=== PATIENT | male | born 1970 | race Caucasian/White ===

== ENCOUNTER 2021-11-08 09:13 | Emergency (ER) | payer SELFPAY ==
[2021-11-08 09:14] VITALS: BP 128/88; PULSE 63; RESP 16; TEMP 36.4; O2SAT 100; BMI 34.7
[2021-11-08 09:20] VITALS: BP 122/84; PULSE 63; RESP 16; O2SAT 99
--- NOTE | 2021-11-08 09:31 | EKG12_ITS ---
Test Reason : CP Blood Pressure : / mmHG Vent. Rate : 060 BPM Atrial Rate : 060 BPM P-R Int : 188 ms QRS Dur : 098 ms QT Int : 404 ms P-R-T Axes : 043 -47 053 degrees QTc Int : 404 ms Normal sinus rhythm Left axis deviation Abnormal ECG Confirmed by MEILY ORNELAS, HEATH ([id number]), editor sound YAHIR SHARMA ([id number]) on 11/11/2021 8:12:49 AM Referred By: Confirmed By:HEATH DIAZ MD
--- NOTE | 2021-11-08 09:33 | EDS_ITS ---
HPI History of Present Illness Chief Complaint: Chest Pain Informant: patient Narrative Narrative: Patient presents with worsening chest pain. This patient has a history of known coronary artery disease. He started with his first heart attack at 38 years old. He has had a total of 13 stents. Most of this was done at [facility] early on. He then had work done at [facility] over the last few years. About 1 year ago he had heart cath with angioplasty but no stenting at [facility]. He was told he will likely need repeat procedure within 6 months. He is also told he would likely need bypass somewhere in the future. He commonly gets chest pain with some exertion but can control this with activity. He does not take nitro. But he has been getting more pain recently. He is also been getting some pain that occurs at rest. It is a heaviness in the left upper chest down the left upper arm. He will sometimes get short of breath with it. He sometimes gets diaphoretic. He does not get nauseated. He is not having symptoms right now. Past medical history includes high blood pressure cholesterol coronary artery disease Medications include Brilinta which he takes regularly. He also took his aspirin. He is on metoprolol. Lisinopril, and atorvastatin, co-Q10 No known drug allergies Multiple stents as above Lives with , non-smoker at this time but is a former smoker. [facility] [employer] [facility] [employer] [facility] Home Medications allopurinol 300 mg tablet 300 mg PO QHS 11/08/21 [History Last Taken Unknown] aspirin 81 mg chewable tablet 162 mg PO DAILY 11/08/21 [History Last Taken Unknown] atorvastatin 80 mg tablet 80 mg PO QHS 11/08/21 [History Last Taken Unknown] coenzyme Q10 100 mg capsule (CoQ-10) 100 mg PO BID 11/08/21 [History Last Taken Unknown] fenofibrate nanocrystallized 145 mg tablet 145 mg PO DAILY 11/08/21 [History Last Taken Unknown] lisinopril 2.5 mg tablet 2.5 mg PO DAILY 11/08/21 [History Last Taken Unknown] metoprolol tartrate 25 mg tablet 25 mg PO BID 11/08/21 [History Last Taken Unknown] omega-3 fatty acids-vitamin E 1,000 mg capsule 1.5 cap PO BID 11/08/21 [History Last Taken Unknown] thyroid (pork) 15 mg tablet (MEDICAL INSTRUMENT TECHNICIAN Thyroid) 15 mg PO DAILY 11/08/21 [History Last Taken Unknown] ticagrelor 90 mg tablet (Brilinta) 90 mg PO BID 11/08/21 [History Last Taken Unknown] Allergy/AdvReac Type Severity Reaction Status Date / Time No Known Allergies Allergy Verified 11/08/21 09:15 Social History Smoking Status: Former smoker ROS ROS ED Constitutional Constitutional ED: Denies chills or fever(s) Eyes Eyes: Denies blurry vision ENT ENT ED: Denies rhinorrhea or sore throat Cardiovascular Cardiovascular: Reports as per HPI and chest pain Respiratory/Chest Respiratory/Chest: Reports dyspnea on exertion Gastrointestinal Gastrointestinal: Denies nausea or vomiting Musculoskeletal Musculoskeletal: Denies arthralgias, back pain, myalgias or neck pain Integumentary Denies rash Neurologic Neurologic: Denies headache(s) Psychiatric Psychiatric: Denies anxiety or depression Endocrine Endocrinology: Denies polydipsia or polyuria Hematologic/Lymphatic Hematologic/Lymphatic: Reports easy bleeding and easy bruising Allergic/Immunologic Allergic/Immunologic ED: Denies urticaria EXAM Physical Exam Const Vital Signs: 11/08/21 09:14 11/08/21 09:20 11/08/21 09:59 Temperature 97.6 F L Temperature Source Temporal Pulse Rate 63 63 Respiratory Rate 16 16 Blood Pressure 128/88 H 122/84 H Blood Pressure Mean 101 96 Pulse Ox 100 99 Oxygen Delivery Method Room Air Room Air Room Air 11/08/21 10:53 11/08/21 11:52 11/08/21 13:13 Temperature Temperature Source Pulse Rate 58 L 52 L 54 L Respiratory Rate 14 14 16 Blood Pressure 122/63 H 104/70 110/79 Blood Pressure Mean 82 81 89 Pulse Ox 98 100 99 Oxygen Delivery Method Room Air Room Air Positive well nourished and well developed Constitutional Narrative: Not diaphoretic. Looks comfortable. Carries on normal conversation. General Appearance ED: well developed and NAD; Negative for pallor HEENT atraumatic Eyes EOMs intact bilaterally Neck no JVD Chest Wall inspection of chest normal Resp normal respiratory effort and clear to auscultation bilaterally Cardio regular rate, regular rhythm and no murmurs GI normal to inspection, nondistended, normoactive bowel sounds, soft to palpation and non-tender Extremity normal to inspection General Extremety ED: Negative for edema or tenderness General Extremity: Negative for edema Neuro oriented x3 Psych mental status grossly normal Skin Skin Narrative: Not diaphoretic General Skin Exam: Negative for jaundice or pallor Heart Score History: Highly Suspicious ECG: Normal Age: >45 - <65 years Risk Factors: >/= 3 Risk Factors or History of CAD Troponin: </= Normal Limit Score: 5 MDM MDM MDM Narrative Medical decision making narrative: Patient CBC is normal. Electrolytes are overall normal. Troponin and repeat troponin are within normal limits. TSH is just slightly high. Chest x-ray shows no acute process but there are chronic processes. Patient does still have a heart score of 5 due to his concerning story of progressive symptoms and his significant history of heart disease. I did discuss the case with our academic dean. He recommended admission and Lovenox. I discussed karan this with the patient. He would prefer not to stay at this time. He states he would not be getting a heart cath over the weekend. He will come back on Wednesday or he will contact cardiology for outpatient heart cath. I explained that if his symptoms changed and his EKG change while in the hospital he might get an urgent cath but otherwise he is correct that he likely would not have a scheduled cath until Wednesday. But even if he comes back on Wednesday he might not get an acute heart cath. Following up as an outpatient will likely take even longer. This is concerning considering his acute and chronic history. The best recommendation is admission. We discussed now only chest pain and having an WA but sudden cardiac from dysrhythmia. Patient prefers to go home. I did encourage him to come back to change his mind at any time. If he has any symptoms I encouraged he and his who was in the room to call 911 also. He will be signed out AMA. Lab Data Attestation: I reviewed the patient's lab results. Labs: Laboratory Results - last 24 hr 11/08/21 11/08/21 11/08/21 09:40 09:40 11:54 WBC 9.1 RBC 4.55 L Hgb 13.2 Hct 40.1 MCV 88.1 MCH 29.0 MCHC 32.9 RDW Std Deviation 48.2 H RDW Coeff of [place] 15.0 H Plt Count 261 MPV 10.9 Immature Gran % (Auto) 0.200 Neut % (Auto) 64.3 Lymph % (Auto) 24.8 Lane % (Auto) 6.7 Eos % (Auto) 3.6 Baso % (Auto) 0.4 Absolute Neuts (auto) 5.8 Absolute Lymphs (auto) 2.26 Nucleated RBC % 0 Sodium 139 Potassium 4.9 Chloride 111 H Carbon Dioxide 21.0 Anion Gap 7 BUN 20 H Creatinine 1.50 H Estim Creat Clear Calc 59.57 Est GFR (MDRD) Af Amer 64 Est GFR (MDRD) Non-Af 53 L BUN/Creatinine Ratio 13.3 Glucose 98 Calcium 9.0 Magnesium 2.1 Troponin I High Sens 5 7 TSH 3.99 H Radiography Diagnostic Testing: Clinical Impression(s) from Imaging Studies Chest X-Ray 11/08/21 09:46 IMPRESSION: Degenerative changes, as described above. No demonstrated acute cardiopulmonary process. Electronically Signed: Alvarez Medeiros MD at 10:13 EDT , EKG Initial EKG: Comments: EKG done for chest pain read by me shows a normal sinus rhythm with overall rate of 60. No ectopy. No notable ST elevation. SD interval, QRS duration and QTc is normal. No old available in our system. Discharge Plan Triage Chief Complaint: Chest Pain ED Provider: Deepak Sousa Dx/Rx/DC Orders Clinical Impression: Unstable angina Instructions: Unstable Angina Prescriptions: No Action atorvastatin 80 mg tablet 80 mg PO QHS Label Comments: take 1 tablet by mouth once daily aspirin 81 mg Tablet,Chewable 162 mg PO DAILY allopurinol 300 mg tablet 300 mg PO QHS Label Comments: take 1 tablet by mouth once daily if needed for gout lisinopril 2.5 mg tablet 2.5 mg PO DAILY Label Comments: take 1 tablet by mouth once daily coenzyme Q10 [CoQ-10] 100 mg Capsule 100 mg PO BID Fish Oil 1,000 mg Capsule 1.5 cap PO BID metoprolol tartrate 25 mg tablet 25 mg PO BID Label Comments: take 1 tablet by mouth twice a day fenofibrate nanocrystallized 145 mg tablet 145 mg PO DAILY Label Comments: take 1 tablet by mouth once daily thyroid (pork) [MEDICAL INSTRUMENT TECHNICIAN Thyroid] 15 mg tablet 15 mg PO DAILY Label Comments: take 1 tablet by mouth once daily Brilinta 90 mg Tablet 90 mg PO BID Primary Care Provider: JEREMIAS MONTOYA Referrals: Gini Mccain MD [STAFF PHYSICIAN] - As soon as possible Mahin Marvin MD [STAFF PHYSICIAN] - As soon as possible [facility] Doctor,Out of [NON-STAFF] - Disposition Disposition: Against Medical Advice
--- NOTE | 2021-11-08 09:46 | RAD_ITS ---
STUDY: X-RAY CHEST REASON FOR EXAM: Male, 51 years old. chest pain TECHNIQUE: Single AP portable view of the chest. COMPARISON: None. FINDINGS: The lungs are clear and expanded. There is no demonstrated pleural abnormality. Normal size heart. Normal mediastinum and juarez. Normal visualized pulmonary arteries. Normal visualized aortic arch and descending thoracic aorta. There are diffuse degenerative changes of the visualized thoracic spine. Normal visualized ribs, clavicles, and shoulders. There is no demonstrated abnormality of the visualized soft tissue structures of the upper abdomen. RAD/Chest 1 View (Portable) IMPRESSION: Degenerative changes, as described above. No demonstrated acute cardiopulmonary process. Electronically Signed: Alvarez Medeiros MD at 10:13 EDT ,
[2021-11-08 09:51] LABS: Absolute Lymphocyte Count 2.26 X10^3/uL (0.83-4.51); Absolute Neutrophil Count 5.8 X10^3/uL (2.0-7.7); Basophil# 0.04 X10^3/uL; Basophil% 0.4 % (0-1); Eosinophil# 0.33 X10^3/uL; Eosinophils% 3.6 % (0-5); Hematocrit 40.1 % (40-54); Hemoglobin 13.2 g/dL (13.0-16.5); Lymphocyte # 2.26 X10^3/ul (0.83-4.51); Lymphocyte % 24.8 % (19-41); Mean Corp Hgb Conc 32.9 g/dL (32-36); Mean Corpuscular Volume 88.1 fL (80-94); Mean Platelet Vol. 10.9 fl (6.2-12.0); Monocyte# 0.61 X10^3/uL; Monocyte% 6.7 % (0-10); NRBC Flagged by Analyzer 0 % (0-5); Neutrophil # 5.84 X10^3/uL (2.7-7.7); Neutrophil % 64.3 % (47-70); Platelet Count 261 K/mm3 (150-450); RBC Distribution Width SD 48.2 fl (35.1-43.9); Red Blood Count 4.55 M/mm3 (4.6-6.2); White Blood Count 9.1 K/mm3 (4.4-11.0)
[2021-11-08 10:22] LABS: Anion Gap 7 (5-15); BUN 20 mg/dL (7-18); BUN/Creat Ratio 13.3 RATIO (10-20); Chloride 111 mmol/L (98-107); EST Glomerular Filtration Rate 53 mL/min (>60); Est Glom Filt Rate - Afr Amer 64 mL/min (>60); Estimated Creatinine Clearance 59.57 ml/min; Glucose 98 mg/dL (74-106); Magnesium 2.1 mg/dL (1.6-2.6); Potassium 4.9 mmol/L (3.5-5.1); Sodium Level 139 mmol/L (136-145); Thyroid Stim Hormone (TSH) 3.99 uIU/mL (0.358-3.74); Troponin-I HS (w/2H Reflex) 5 pg/mL (3.0-78.0)
[2021-11-08 10:53] VITALS: BP 122/63; PULSE 58; RESP 14; O2SAT 98
[2021-11-08 11:45] LABS: Reflex Troponin-HS? (from REC) Y
[2021-11-08 11:52] VITALS: BP 104/70; PULSE 52; RESP 14; O2SAT 100
[2021-11-08 12:18] LABS: Troponin-I HS 7 pg/mL (3.0-78.0)
[2021-11-08 13:13] VITALS: BP 110/79; PULSE 54; RESP 16; O2SAT 99
[2021-11-08] MEDS: Enoxaparin 100 MG/ML Syringe SC (13:15)
[2021-11-08 13:38] VITALS: BP 138/77; PULSE 62; RESP 15; O2SAT 98
== END 2021-11-08 13:38 | disposition left against medical advice (07) ==
PROVIDERS: Emergency Provider Emergency Medicine; Visit Provider Emergency Medicine
DX: I25.110 Atherosclerotic heart disease of native coronary artery with unstable angina pectoris (principal); I49.9 Cardiac arrhythmia, unspecified; Z87.891 Personal history of nicotine dependence
CPT/HCPCS: 36415; 71045; 80048; 83735; 84443; 84484; 85025; 93005; 96372; 99284; A4216

== ENCOUNTER → 2021-11-14 | Outpatient (CLI) | payer SELFPAY ==
[2021-11-14 17:29] LABS: Prothrombin Time (Protime)PT. 12.9 SECONDS (11.7-14.9)
[2021-11-14 17:30] LABS: Partial Thromboplast Time 36.8 Seconds (24.1-36.2)
== END | disposition home or self-care (01) ==
PROVIDERS: Visit Provider Internal Medicine Cardiovascular Disease
DX: I25.110 Atherosclerotic heart disease of native coronary artery with unstable angina pectoris (principal); I20.0 Unstable angina; I10 Essential (primary) hypertension; E78.2 Mixed hyperlipidemia; Z95.5 Presence of coronary angioplasty implant and graft
CPT/HCPCS: 36415; 85610; 85730

== ENCOUNTER → 2021-11-19 | Outpatient (CLI) | payer SELFPAY ==
--- NOTE | 2021-11-19 14:40 | ECHOCS_ITS ---
Reason For Study: CAD/ASHD Procedure This was a 2D Doppler, Color Flow transthoracic echocardiogram. The study was technically difficult. Contrast injection was performed. Exam performed in department. Left Ventricle Normal LV size. Left ventricular systolic function is normal. The estimated ejection fraction is 65 %. No evidence for diastolic dysfunction. No regional wall motion abnormalities noted. Right Ventricle Normal RV size. Normal systolic function. Atria Normal left atrium. Normal right atrium. No doppler evidence for ASD. Mitral Valve There is no mitral annular calcification. Normal mitral valve. Trivial mitral valve insufficiency. Tricuspid Valve Normal tricuspid valve. Trivial tricuspid valve insufficiency. Unable to estimate RV systolic pressure/pulmonary artery pressure due to technically difficult study. Aortic Valve Trisinus/trileaflet aortic valve. Normal aortic valve. Pulmonic Valve The pulmonic valve is not well visualized. Great Vessels The aortic root is not well visualized. Pericardium/Pleural No pericardial effusion. Medication 20 gauge I.V. with prn adaptor inserted into right arm. Diluted definity 1ml given slow IV push to enhance endocardial definition. MMode/2D Measurements & Calculations LVIDd: 4.7 cm IVSd: 1.2 cm LA dimension: 3.9 cm LVIDs: 3.3 cm LVPWd: 1.3 cm RVDd: 3.6 cm FS: 29.4 % LAV(MOD-bp): 45.7 ml LA A4 area: 18.4 cm2 RA A4 area: 16.4 cm2 LAV(MOD-bp) Indexed: 20.7 ml/m2 LAV(MOD-sp2): 35.7 ml LAV(MOD-sp4): 44.9 ml Time Measurements MV dec time: 0.13 sec Doppler Measurements & Calculations MV E max anand: 95.5 cm/sec Lat Peak E' Anand: 15.3 cm/sec Med Peak E' Anand: 11.4 cm/sec MV A max anand: 66.8 cm/sec E/E' lat: 6.2 E/E' med: 8.4 MV E/A: 1.4 MV V2 max: 108.5 cm/sec MV P1/2t max anand: 108.5 cm/sec Ao V2 max: 134.2 cm/sec MV max P.7 mmHg MV P1/2t: 59.3 msec Ao max P.2 mmHg MV V2 mean: 53.3 cm/sec MV dec slope: 535.9 cm/sec2 MV mean P.4 mmHg MV V2 VTI: 25.7 cm MVA(P1/2t): 3.7 cm2 LV V1 max: 104.5 cm/sec PA V2 max: 103.0 cm/sec LV V1 max P.4 mmHg ECHO/Echo Complete W/ Contrast Interpretation Summary The study was technically difficult. Contrast injection was performed. Left ventricular systolic function is normal. The estimated ejection fraction is 65 %. Trivial mitral valve insufficiency. Trivial tricuspid valve insufficiency. Unable to estimate RV systolic pressure/pulmonary artery pressure due to techni libby difficult study. No evidence for diastolic dysfunction. Ordering Physician: Lul Dominguez Referring Physician: Lul Dominguez Performed By: Floyd James, CASE
== END | disposition home or self-care (01) ==
PROVIDERS: Referring Provider Internal Medicine Cardiovascular Disease; Visit Provider Internal Medicine Cardiovascular Disease
DX: I25.10 Atherosclerotic heart disease of native coronary artery without angina pectoris (principal); Z95.5 Presence of coronary angioplasty implant and graft
CPT/HCPCS: 93306; Q9957; A4216; C8929

== ENCOUNTER 2021-11-20 09:54 | Observation (INO) | payer SELFPAY ==
[2021-11-19 09:33] VITALS: BMI 34.8
--- NOTE | 2021-11-19 19:39 | HP.PCM_ITS ---
History and Physical Date of Admission: 11/20/21 [facility] [address] [place] [address] OFFICE VISIT Date of Service:? 11/14/21 MR#: [id number] Acct: [id number] Name:LUCI TATUM Rep #: [id number] : 1970 Provider: Dr. Lul Dominguez MD Age/Sex:? 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 It appears the patient has been cared for from a cardiovascular standpoint in many locations with the 2 most recent locations appearing to be through the [facility] in [place], [place] as well as via cardiology at [facility] in [place], [place]. It appears his most recent outpatient cardiovascular visit was on 11-22-2020 in [place], [place].? At that point in time per his visit note he was continuing medical management and attempting to bring his diet and his exercise under better control in order to improve his cardiovascular risks. It appears he underwent cardiac catheterization on 11-20-2019 in [place], [place].? At that point in time per the report the patient underwent cardiac catheterization via the right femoral artery approach.? The left main coronary was reported as normal.? The LAD was reported as having an in-stent restenosis less than 20%, the LCx had mid in-stent restenosis less than 20%, the RCA had mid in-stent restenosis of 95%.? The left ventricle was reported as normal with an LVEF of 65%.? The patient subsequently underwent PTCA/stent of the RCA system with a Medtronic resolute Lynn 3.5x22 OTW stent. It appears that his most recent diagnostic cardiac catheterization was performed on 08-30-2020 in [place], [place].? At that point in time per their report he was evaluated for unstable angina.? According to their report the left main coronary artery had minimal luminal regularities, the LAD had mid 40% stenosis, the LCx had a mid stent which was widely patent, the RCA was noted to have at least 2 layers of stents in the mid vessel.? The proximal RCA had 50% stenosis and had previously been stented, the mid RCA had 80% stenosis and had been stented, the distal RCA had 70% stenosis and had been stented.? At that time the patient underwent PTCA/no stent of the proximal mid and distal RCA systems.? The left ventricle was reported as normal with an LVEF of 55 to 60%. He states he has been told that at some point in time he would need to be evaluated for CT surgery was CABG.? He states he has never been officially evaluated by CT surgery for such a procedure. He states he knows his symptoms.? He knows when he feels that he has developed a new blockage .? He developed chest dullness and pressure over his left chest area which is what he states he has been having that has been waxing and waning.? He states that this can occur without having acute nausea emesis or diaphoresis.? He may or may not note shortness of breath and dyspnea.? He does begin to feel more tired and fatigued. He notes because of these symptoms he was evaluated at [facility] in [place], [place].? He states after several hours in the emergency department he was released home.? He was subsequently evaluated on 11-08-2021 at [facility] emergency department.? There he had a troponin I level which was negative.? His ECG demonstrated findings of sinus rhythm with a left axis deviation.? His chest x-ray was reported as unremarkable.? He was offered admission to the hospital, however, he stated he did not want to remain in the hospital over the course of the weekend waiting for a possible cardiac catheterization to occur at the beginning of the following week.? Thus he signed out AMA and requested outpatient cardiovascular consultation. Today he denies any ongoing orthopnea or PND or worsening peripheral pitting edema.? There has been no near-syncope or syncope. He states he has not been using nitroglycerin sublingual.? He does note when he uses it he gets headaches. He had an ECG in the office today.? He was noted to have sinus rhythm with a left axis deviation and an incomplete right bundle branch block pattern. Intake Vital Signs ? 11/08/2208:14 11/14/2214:37 11/14/2214:39 Height 5 ft 9 in 5 ft 9 in 5 ft 9 in Weight: ? ? 236 lb 9 oz BMI ? ? 34.9 BP ? ? 110/68 Blood Pressure Location ? ? Lt brachial Position ? ? Sitting Respiration ? ? 16 Pulse ? ? 68 Pulse Source ? ? Auscultation Intake Visit Reasons:?ANGINA/REF. ED Packager Head Required: No Accompanied by: Significant Other Allergies No Known Allergies Allergy (Verified 11/14/21 15:40) Medications allopurinol 300 mg tablet 300 mg PO QHS 11/08/21 [History Confirmed 11/14/21] aspirin 81 mg chewable tablet 162 mg PO DAILY 11/08/21 [History Confirmed 11/14/21] atorvastatin 80 mg tablet 80 mg PO QHS 11/08/21 [History Confirmed 11/14/21] coenzyme Q10 100 mg capsule (CoQ-10) 100 mg PO BID 11/08/21 [History Confirmed 11/14/21] fenofibrate nanocrystallized 145 mg tablet 145 mg PO DAILY 11/08/21 [History Confirmed 11/14/21] lisinopril 2.5 mg tablet 2.5 mg PO DAILY 11/08/21 [History Confirmed 11/14/21] metoprolol tartrate 25 mg tablet 25 mg PO BID 11/08/21 [History Confirmed 11/14/21] omega-3 fatty acids-vitamin E 1,000 mg capsule 1.5 cap PO BID 11/08/21 [History Confirmed 11/14/21] thyroid (pork) 15 mg tablet (DUST MOP MAKER Thyroid) 15 mg PO DAILY 11/08/21 [History Confirmed 11/14/21] ticagrelor 90 mg tablet (Brilinta) 90 mg PO BID 11/08/21 [History Confirmed 11/14/21] cholecalciferol (vitamin D3) 50 mcg (2,000 unit) tablet 50 mcg PO DAILY 11/11/21 [History Confirmed 11/14/21] nitroglycerin 0.4 mg sublingual tablet 0.4 mg sublingual Q5-15M PRN 11/11/21 [History Confirmed 11/14/21] ranolazine 500 mg tablet,extended release,12 hr (Ranexa) 500 mg PO BID #60 tabs 11/14/21 [Rx Confirmed 11/14/21] PFSH Medical History? Atherosclerotic heart disease of [place] coronary artery with unstable angina pectoris CKD (chronic kidney disease) Depression Essential hypertension History of ST elevation myocardial infarction (STEMI) Hypothyroidism Mixed hyperlipidemia IKER (obstructive sleep apnea) Presence of stent in coronary artery (~11/20/19) Surgical History? Presence of coronary angioplasty implant and graft (~11/20/19) Family History? Father Heart disease CAD (coronary artery disease)Mother Myocardial infarction CAD (coronary artery disease) Social History? Smoking Status:? Former smoker alcohol intake:? never substance use type:? does not use caffeine:? Yes Type: coffee Number of servings: 1 ROS Const Const: Negative for fatigue, weakness, body ache, fever(s), headache(s), chills, frequent falls, night sweats, daytime sleepiness, difficulty sleeping, excessive sweating, weight gain, weight loss, increased appetite, poor appetite, anorexia or other Eyes Eyes: Negative for blurry vision or double vision ENT ENT: Negative for headache(s), dizziness or balance problems Cardio Chest Pain: Yes Character: other (headache feeling in heart with radiates to Lt UE) Onset: at rest and exercise Location: left chest Duration: minutes (intermittent) Relieving: rest Palpitations: Yes (previously...not lately the past couple of months) feels like its: other (fluttering) Edema: None Muscle aches with walking: Bilateral (calf muscles ambulating long distance) Resp Respiratory: Positive for SOB with activity (occasional); Negative for SOB at rest, SOB orthopnea\SOB lying down, Cough, Coughing up blood/hemoptysis, chest congestion, pain on inspiration, snoring, stridor, wheezing, crackles, paroxysmal nocturnal dyspnea or other Musc Musc: Negative for muscle aches/ myalgia, muscle weakness, joint pain or balance problems Neuro Neuro: Positive for lightheadedness (occasional in the am); Negative for dizziness, near syncope, syncope, orthostatic symptoms, frequent falls, headache(s), weakness, confusion, memory loss, restless legs, blurry vision, double vision, vertigo, seizures, lack of coordination or other Endo Endo: Negative for fatigue or excessive sweating Cardiology Exam Const Appearance: cooperative, healthy appearing, comfortable, no acute distress, well developed and well groomed Nutritional Appearance: overweight Orientation: alert, awake and oriented x3 Head Head: normal to inspection, normocephalic and atraumatic Ears: hearing grossly normal bilaterally Nose: external nose normal Face and Sinus: face symmetric Eyes Eyelids: eyelids normal Conjunctivae: conjunctivae normal Pupils: PERRL EOM: EOM intact bilaterally Neck Neck: normal visual inspection and full ROM Carotids: normal carotid upstroke Chest Chest inspection: normal inspection of the chest, symmetric chest movement and normal respiratory effort Auscultation: Bilateral: Clear to Auscultation Cardio Palpation: normal PMI Rate: regular rate Rhythm: regular rhythm Heart sounds: S1 normal and S2 normal Supplemental Info Supplemental Information Labs: ?? ? No Data to Display Diagnostics: ?? ? Electrocardiogram ? Chest X-Ray ? Pulmonary: ?? ? No Data to Display Assessment and Plan Assessment and Plan (1) Atherosclerotic heart disease of [place] coronary artery with unstable angina pectoris: ?Status:?Acute ?Plan: He does have a history of extensive CAD as noted. At the moment there is concern of his symptoms being related to his CAD process. He will continue medical therapy. He has not been on nitrates potentially because of the concern of headaches and to eliminate medications that would interfere with his ability to use medications needed for erectile dysfunction. He will be attempted on Ranexa at 500 mg twice daily. He states in the past that he has undergone exercise tolerance test/imaging studies.? He states 1 was reported as normal and within a week he was in the hospital with an acute coronary syndrome undergoing cardiac catheterization and PCI.? He states 9 out of 10 will lead to the cardiac catheterization laboratory.? He prefers to proceed directly to the cardiac catheterization laboratory for additional evaluation. At the moment he will be asked to have a transthoracic echocardiogram performed to evaluate his left ventricular wall motion and systolic function. A cardiac catheterization procedure and risk were discussed with him.? He was agreeable to this approach.? This will be established for him. He is aware that he may not be a candidate for additional PCI and may need to be considered for CT surgery consultation for possible CABG. (2) Presence of stent in coronary artery: ?Status:?Acute ?Comment: PCI/MARLO to mid RCA per cardiac cath @ [facility]. [facility] Dr. Matt Chavez 11/20/2019; PCI/MARLO to the mid and distal RCA per cardiac cath @ @ [facility]. [facility] Dr. Matt Chavez 07/07/19; 2 vessel CAD, no intervention per cath 04/01/17; PCI/MARLO of the distal RCA per cath 06/09/16; PCI/Stenting to high grade lesions involving the LCX and RCA per cath 10/03/15; PCI/stent to mid RCA per cath 07/05/15 ?Plan: He has undergone extensive PCI work in the past at various institutions. An attempt will be made to obtain their images for continuity of care. However the meantime he will continue medical therapy and his noninvasive and invasive evaluation. (3) Mixed hyperlipidemia: ?Status:?Acute ?Plan: He will continue lipid-lowering therapy. (4) Essential hypertension: ?Status:?Acute ?Plan: He will continue medical therapy for his hypertension. (5) Unstable angina: ?Status:?Acute ?Plan: He claims his symptoms are compatible with his unstable angina symptoms. Thus at the present time he will proceed with his medical therapy, noninvasive evaluation, and invasive evaluation as noted. ? ? ? Orders: Orders 12 Lead EKG performed by [facility] Today I25.1 10 - Atherosclerotic heart disease of [place] coronary artery with unstable angina pectoris, Z95.5 - Presence of coronary angioplasty implant and graft ? Left Heart Cath/COR/LV Percut Today E78.2 - Mixed hyperlipidemia, I10 - Essential (primary) hypertension, I20.0 - Unstable angina, I25.110 - Atherosclerotic heart disease of [place] coronary artery with unstable angina pectoris, Z95.5 - Presence of coronary angioplasty implant and graft ? Partial Thromboplast Time Today E78.2 - Mixed hyperlipidemia, I10 - Essential (primary) hypertension, I20.0 - Unstable angina, I25.110 - Atherosclerotic heart disease of [place] coronary artery with unstable angina pectoris, Z95.5 - Presence of coronary angioplasty implant and graft ? Prothrombin Time w/INR Today E78.2 - Mixed hyperlipidemia, I10 - Essential (primary) hypertension, I20.0 - Unstable angina, I25.110 - Atherosclerotic heart disease of [place] coronary artery with unstable angina pectoris, Z95.5 - Presence of coronary angioplasty implant and graft ? Echo Complete Today E78.2 - Mixed hyperlipidemia, I10 - Essential (primary) hypertension, I20.0 - Unstable angina, I25.110 - Atherosclerotic heart disease of [place] coronary artery with unstable angina pectoris, Z95.5 - Presence of coronary angioplasty implant and graft ? Medications: New ranolazine ER (Ranexa) 500 mg? PO BID 60 tabs 3RF ? ? Plan Details Additional Comments: Thank you for allowing me to participate in the care of your patient.? Please don't hesitate to call if any issues arise. This note was generated using a voice recognition system and there may be incorrect words, spelling or punctuation that were not noted when reviewing the office note prior to saving. Follow Up: ? ? 6 Weeks (PFM ) ? ? 11/14/21 (copy of cardiac cath films from [facility]) COVID (Procedure Consent) Procedure Criteria Procedure Criteria: Yes Elective The surgeon/proceduralist and patient have discussed in detail the risk of exposure to and/or potential harm posed by the COVID-19 virus with having a surgery/procedure at this time versus the risk of? delaying the surgery/procedure. It is not possible to know either the risk of delaying the surgery or procedure or chance of getting an infection with perfect accuracy, but a joint decision was made between the patient and the surgeon/proceduralist ?to proceed at this time with the scheduled surgery/procedure as indicated on the consent form. Coding Level of Care Code Off vis,new,level 5 Diagnoses Atherosclerotic heart disease of [place] coronary artery with unstable angina pectoris? I25.110 Presence of stent in coronary artery? Z95.5 Mixed hyperlipidemia? E78.2 Essential hypertension? I10 Unstable angina? I20.0 Coding Level of Care Code Off vis,new,level 5 Diagnoses Atherosclerotic heart disease of [place] coronary artery with unstable angina pectoris? I25.110 Presence of stent in coronary artery? Z95.5 Mixed hyperlipidemia? E78.2 Essential hypertension? I10 Unstable angina? I20.0 11/14/21 0856 <Electronically signed by Lul Dominguez MD> Date [facility] Signature: Date (if applicable) CC:? No Primary? Care Physician ~ Assessment & Plan Addt'l Comments Addendum: The patient underwent further evaluation with transthoracic echocardiogram on 11-19-2021. The results are noted below. Interpretation Summary The study was technically difficult. Contrast injection was performed. ? Left ventricular systolic function is normal. The estimated ejection fraction is 65 %. Trivial mitral valve insufficiency. Trivial tricuspid valve insufficiency. Unable to estimate RV systolic pressure/pulmonary artery pressure due to technically difficult study. No evidence for diastolic dysfunction. I have re-examined the patient. There are no clinical changes since date of exam
--- NOTE | 2021-11-20 10:24 | CL.D_ITS ---
Patient Name: LUCI SERRATO Study Date: 11/20/2021 Performing: Lul Dominguez MD Ht: 68.89 inches 175 cm : 1970 Wt: 235.89 lbs 107 kg Age: 51 Gender: male BSA: 2.21 PROCEDURE(S) PERFORMED DC02-(91550)LHC/COR IC12-(20057/C9600)MARLO W/WO PTCA, SINGLE CORONARY ARTERY CLINICAL PROFILE AND INDICATIONS Indications: Worsening Angina, Suspected CAD Heart Failure: None Stress/Imaging Stress/Image Study Performed: No Angina Classification Anginal Classification w/in 2 Weeks: CCS III CAD Presentations: Unstable angina. CONCLUSIONS Elevated Left Ventricular End Diastolic Pressure [place] Multivessel CAD LCX: stent: patent RCA: distal stent: instent restenosis RECOMMENDATIONS Risk factor modification Medical therapy Referred for immediate PCI DESCRIPTION OF PROCEDURE The patient arrived to the procedure lab. The risks and benefits of the procedure as well as a full d escription of our services here and current unavailability of surgical backup were fully explained to the patient and/or their significant other prior to the catheterization. The Timeout was completed, verifying the correct patient and procedure. The patient's procedural site was prepped and draped in the usual fashion. Local anesthetic was given subcutaneously to right radial region with Lidocaine 2% . Using a modified Seldinger technique, arterial access was obtained via the right radial artery, a 6 Fr sheath was inserted. LV to AO pullback pressures were then recorded. Left Coronary Artery selecti ve angiography was performed in multiple views using a 5 Fr. 4.0 [place] catheter. Right Coronary Arter y selective angiography was then performed in multiple views using a 5 Fr. 4.0 [place] catheter.The art erial sheath was pulled and a TR Band was applied for hemostasis CORONARY ANGIOGRAPHY DOMINANCE: Right Dominant LEFT HEART ASSESSMENT Elevated Left Ventricular End Diastolic Pressure LVEDP: 17 mmHg LEFT MAIN: Angiographically normal LEFT ANTERIOR DESCENDING ARTERY: Mild luminal irregularities DIAGONAL 1: Proximal - Mild luminal irregularities CIRCUMFLEX ARTERY: Mild luminal irregularities MID CIRC: Previously placed stent is patent RAMUS: Mild luminal irregularities RIGHT CORONARY ARTERY: PROX RCA: Previously placed stent is patent MID RCA: Previously placed stent is patent DISTAL RCA: Previously placed stent has an instent diffuse: 85 % and 75 % restenosis COMPLICATIONS No Complications PROCEDURE MEDICATIONS Fentanyl 50 mcg IV Versed 1 mg IV Versed 1 mg IV Fentanyl 50 mcg IV Fentanyl 50 mcg IV Versed 1 mg IV Oxygen: 2 L/min via nasal cannula Heparin 7000 unit(s) IV 11/20/2021 09:02:50 Zofran 4 mg IV 11/20/2021 07:41:35 SUMMARY OF HEMODYNAMIC DATA Time AIR REST ECG 07:15:23 ECG 07:41:05 LV 137/-1, 26 08:23:07 LV 134/2, 17 08:23:20 LVp 145/1, 26 08:23:26 AOp 121/63 (97) 08:23:33 AO 133/82 (103) SA 08:23:50 AO 117/83 (100) 08:27:19 AO 128/63 (87) 08:30:17 Signed By Lul Dominguez MD On 11/20/2021 10:23:27 Lul Dominguez MD
--- NOTE | 2021-11-20 11:09 | PCI.CARDCATH ---
PCI Cardiac Cath Report PCI Report: 1. Successful PCI of 85% mid RCA in-stent restenosis, with predilatation using NC 2.5 x 15 mm balloon, emerge MR balloon Followed by placement of a drug-eluting stent 3 x 30 mm MARLO/[place], postdilated using 3.5 x 15 mm/emerge MR NC balloon with reduction of stenosis to 0% and maintenance of RULA-3 flow. 2. Placement of TR band to close the right radial artery arteriotomy site. Preprocedure diagnosis: 51-year-old patient with history of CAD has a multiple prior cardiac catheterization with PCI and stent of left circumflex and RCA. Presented with angina symptoms classical angina within the last 2 weeks with a medical therapy dual antiplatelet therapy aspirin and Brilinta I reviewed the cardiac catheterization today with Dr. Dominguez Patient has left main normal angiographically, bifurcating into LAD and left circumflex The left anterior descending artery had mild luminal irregularities as well as mild luminal irregularities in the proximal diagonal branch The mid left circumflex artery previously placed stent is patent. Ramus intermedius has mild luminal irregularity Right coronary artery had a stent involving the proximal RCA and mid RCA and the distal RCA Noted mid to distal RCA stent had diffuse in-stent restenosis of around 85%. As the patient had classical angina discuss PCI and stent of mid to distal RCA in-stent restenosis. Consent; Risk and benefit of procedure explained detail to the patient elected to proceed informed consent obtained. Anticoagulation use in the Paper Cap Machine Operator; Patient has already been on dual antiplatelet with aspirin and Brilinta Patient was given 3000 units of heparin through the sheath/right radial sheath and a total of 73,000 units of IV heparin intravenous. Interventional equipment used; 1. 6 [place] JR4 guide catheter 2. 0.014 run-through extra floppy 180 cm straight wire 3. 0.035-260 cm J exchange wire. 4. 2.5 x 15 mm NC MR Emerge balloon 5. 3 x 30 mm drug-eluting stent/Orsiro?[place] 6. 3.5 x 15 mm NC Emerge MR balloon Procedure in detail; Under fluoroscopic guidance we will proceed with a 6 [place] JR4 guide advanced ascending aorta cannulated the RCA ostium without difficulty, followed by the guidewire proceeds across the lesion and placed the guidewire into the midportion of the RPDA Then will proceed with the balloon dilatation using the 2.5 x 15 mm NC balloon, followed by placement of a drug-eluting stent followed by postdilatation up to 20 TJ We achieve excellent result, ACT level acceptable above 300 Conclusion and recommendations; Successful PCI of diffuse in-stent restenosis of the mid to distal RCA with predilatation and placement of drug-eluting stent followed by postdilatation 1. Patient to continue on dual antiplatelet therapy with Brilinta aspirin for 1 year, followed by aspirin indefinitely 2. Patient is scheduled for phase 1 cardiac rehab program 3. Patient to follow-up with the primary gettering filament machine operator Dr. Dominguez for continuation of cardiac care plan. No complication in the Paper Cap Machine Operator Mahin Marvin MD,FACC,[facility]
--- NOTE | 2021-11-20 11:15 | EKG12_ITS ---
Test Reason : am ekg Blood Pressure : / mmHG Vent. Rate : 061 BPM Atrial Rate : 061 BPM P-R Int : 182 ms QRS Dur : 102 ms QT Int : 436 ms P-R-T Axes : 049 -53 075 degrees QTc Int : 438 ms Normal sinus rhythm Left axis deviation Abnormal ECG Confirmed by EMILY ORNELAS, HEATH ([id number]), electronic news gathering editor YAHIR SHARMA ([id number]) on 11/24/2021 10:35:30 AM Referred By: Confirmed By:HEATH DIAZ MD
--- NOTE | 2021-11-20 11:31 | CRPHASE1 ---
Patient Communication PHII Cardiac Rehab Discussed with Patient:: Yes Guide to Cardiac Rehab Given to Patient:: Yes Cardiac Rehab Facility Choice List Given to Patient:: Yes Choice Program [facility] CR PHII:: Communication Given to CR Choice Program Other:: Communication Given to CR Legal Job Titles:: [facility] Phase II Cardiac Rehab:: Yes Sessions:: 36 sessions - 3 days/wk, 12 weeks - previous stenting- done at another facility Cardiac Rehabilitation Info Cardiac Rehabilitation Program Information: Cardiac Rehabilitation is important for patients like you who are recovering from a heart problem. Cardiac rehabilitation programs are recognized as integral to the continued care of the patient with coronary heart disease. The cardiac rehabilitation program is designed to optimize a patient's physical, psychological, and social functioning. Health student career development specialist work in cardiac rehabilitation programs and assist you with getting the treatments you need to get stronger and healthier - like exercise, healthy eating habits, and medications. Cardiac rehabilitation has been show to help people with heart problems live longer and have better life enjoyment than people who do not go to cardiac rehabilitation. Please contact the Cardiac Rehabilitation Program at [facility] at in two weeks if you have not heard from them.
--- NOTE | 2021-11-20 11:32 | CRPH1.INSTRU ---
General Education CAD and cardiac anatomy and function:: Patient communicates acknowledgment Explanation of diagnoses and procedures:: Patient communicates acknowledgment Sign/Symptoms of [place]:: Patient communicates acknowledgment Antiplatelet therapy: Patient communicates acknowledgment Smoking Patient Nicotine/Smoking Risk Factors Are:: Non-smoker Recommendations Include:: Previous smoker; encourage continued cessation Nicotine/Smoking Response Code:: Patient communicates acknowledgment Dyslipidemia Patient Dyslipidemia Risk Factors Are:: Total Cholesterol, Triglycerides, HDL, LDL Recommendations Include:: Lipid profile not available, Reviewed NCEP/ATP guidelines, Therapeutic Lifestyle Change dietary guidelines Dyslipidemia Response Code:: Patient communicates acknowledgment Overweight/Obesity Patient Overweight/Obesity Risk Factors Are:: Obesity - > or = 30 Recommendations Include:: Weight loss of 5-10%, Reduced calorie diet, Exercise 5-7 times/week Overweight/Obesity:: Patient communicates acknowledgment Hypertension Recommendations Include:: Maintain BP <130/85, DASH dietary guidelines, Decrease/maintain normal body weight Hypertension:: Patient communicates acknowledgment Diabetes Patient Diabetes Risk Factors Are:: No documented hx of diabetes Metabolic Syndrome Patient Metabolic Syndrome Risk Factors Are [3 of 5]:: Waist circumference > 35 [female] or 40 [male], High triglyceride >150, Hypertension, Low HDL <40 [male] or < 50 [female] Recommendations Include:: Reinforce compliance to risk factor modifications, Encouraged follow-up with Primary Care Physician Metabolic Syndrome Response Code:: Patient communicates acknowledgment Sedentary Patient Sedentary Risk Factors Are:: Lack of regular exercise Recommendations Include:: Aerobic exercise 5-7 times/week for 20-30 minutes continuously, Benefits of regular exercise, Discussed home walking program, Monitored Outpatient Cardiac Rehab Sedentary Response Code:: Patient communicates acknowledgment Stress Recommendations Include:: Identification of stressors, and assessment of coping skills, Stress management techniques Stress Response Code:: Patient communicates acknowledgment
[2021-11-20 15:35] VITALS: BP 108/64; PULSE 59; PULSE 60; RESP 16; TEMP 36.4; O2SAT 98
[2021-11-20] MEDS: 0.9% Normal Saline 1,000 ML 75 ML IV (16:00)
[2021-11-20 17:20] VITALS: O2SAT 96
[2021-11-20 19:27] VITALS: PULSE 59
[2021-11-20 21:38] VITALS: BP 111/71; PULSE 59; RESP 18; TEMP 36.6; O2SAT 98
[2021-11-20 21:49] VITALS: BP 111/71; PULSE 59
[2021-11-20] MEDS: Allopurinol 300 MG Tablet PO (21:49)
[2021-11-20] MEDS: Ranolazine 500 MG Tablet PO (21:49)
[2021-11-20] MEDS: TICAGRELOR 90 MG TABLET PO (21:49)
[2021-11-20] MEDS: Atorvastatin Calcium 80 MG Tablet PO (21:49)
[2021-11-21 03:17] VITALS: PULSE 61
[2021-11-21 03:26] VITALS: BP 111/62; PULSE 63; RESP 16; TEMP 36.5; O2SAT 97
[2021-11-21 05:47] LABS: Absolute Lymphocyte Count 2.06 X10^3/uL (0.83-4.51); Absolute Neutrophil Count 4.7 X10^3/uL (2.0-7.7); Basophil# 0.04 X10^3/uL; Basophil% 0.5 % (0-1); Eosinophil# 0.32 X10^3/uL; Eosinophils% 4.1 % (0-5); Hemoglobin 12.8 g/dL (13.0-16.5); Lymphocyte # 2.06 X10^3/ul (0.83-4.51); Lymphocyte % 26.4 % (19-41); Mean Corp Hgb Conc 32.8 g/dL (32-36); Mean Corpuscular Hgb 28.8 pg (27.0-32.0); Mean Corpuscular Volume 87.8 fL (80-94); Mean Platelet Vol. 10.7 fl (6.2-12.0); Monocyte% 7.7 % (0-10); NRBC Flagged by Analyzer 0 % (0-5); Neutrophil # 4.74 X10^3/uL (2.7-7.7); Neutrophil % 60.9 % (47-70); Platelet Count 241 K/mm3 (150-450); RBC Distribution Width CV 14.9 % (11.6-14.6); RBC Distribution Width SD 48.2 fl (35.1-43.9); Red Blood Count 4.44 M/mm3 (4.6-6.2); White Blood Count 7.8 K/mm3 (4.4-11.0)
--- NOTE | 2021-11-21 05:55 | EKG12_ITS ---
Test Reason : POST PCI Blood Pressure : / mmHG Vent. Rate : 058 BPM Atrial Rate : 058 BPM P-R Int : 194 ms QRS Dur : 100 ms QT Int : 428 ms P-R-T Axes : 039 -37 034 degrees QTc Int : 420 ms Sinus bradycardia Left axis deviation Incomplete right bundle branch block Abnormal ECG Confirmed by EMILY ORNELAS, HEATH ([id number]), deputy editor in chief YAHIR SHARMA ([id number]) on 11/24/2021 10:41:15 AM Referred By: DR REED Confirmed By:HEATH DIAZ MD
[2021-11-21 06:41] LABS: AST(SGOT) 18 U/L (15-37); Alanine Aminotransfer ALT/SGPT 21 U/L (16-61); Albumin, Serum 3.4 g/dL (3.2-5.0); Alkaline Phosphatase 37 U/L (45-117); Anion Gap 6 (5-15); BUN 18 mg/dL (7-18); BUN/Creat Ratio 13.2 RATIO (10-20); Calcium,Total 8.7 mg/dL (8.5-10.1); Chloride 108 mmol/L (98-107); Creatinine, Serum 1.36 mg/dL (0.70-1.30); EST Glomerular Filtration Rate 59 mL/min (>60); Est Glom Filt Rate - Afr Amer 72 mL/min (>60); Globulin 3.5 g/dL (2.2-4.2); Glucose 101 mg/dL (74-106); Potassium 4.1 mmol/L (3.5-5.1); Protein, Total 6.9 g/dL (6.4-8.2); Sodium Level 136 mmol/L (136-145)
[2021-11-21 06:58] VITALS: O2SAT 95
[2021-11-21 07:53] VITALS: PULSE 67
[2021-11-21] MEDS: Thyroid 15 MG Tablet PO (08:11)
[2021-11-21 08:31] VITALS: BP 117/82; PULSE 57; RESP 16; TEMP 36.6; O2SAT 100
[2021-11-21] MEDS: Fenofibrate 145 MG Tablet PO (08:36)
[2021-11-21] MEDS: Cholecalciferol (VIT D3) 25 MCG TABLET (1,000 UNITS) 50 MCG PO (08:36)
[2021-11-21] MEDS: TICAGRELOR 90 MG TABLET PO (08:36)
[2021-11-21] MEDS: Ranolazine 500 MG Tablet PO (08:36)
[2021-11-21 09:33] VITALS: BP 117/82; PULSE 57
[2021-11-21] MEDS: Metoprolol Tartrate 25 MG Tablet PO (09:33)
[2021-11-21] MEDS: Lisinopril 2.5 MG Tablet PO (09:33)
--- NOTE | 2021-11-21 09:52 | PCM.DC ---
Discharge Instructions Diet Discharge Diet: Low fat / Low cholesterol Activity Discharge Activity: May Not Drive (x 24 hours), May Shower (Today) and May Take a Tub Bath (in 7 days) May resume sexual activity in: 1-2 weeks Weight Bearing Status: - (avoid heavy exertional activity x 2 weeks) Dressing / Incision Call your doctor if your incision/area has: Continuous Slow Oozing, Sudden Increased Bleeding, Increased Pain/ Swelling, Increased Redness, Foul Smelling Discharge and Swelling at the incision site Call your doctor if you observe: Fever of 101 or Higher, Shortness of breath, Fainting spells, Swelling in the ankles, Chest pain, Increased palpitations (irregular heartbeat) and Uncontrolled pain Remove Dressing in: 1 day Cleanse incision/area with: Soap & Water Follow Up Care Please Follow Up With: Lul Dominguez MD When: [facility] to arrange follow up appt. Test Results: Test results from this visit will be discussed in further detail at your follow-up appointment, if applicable. Discharge Plan Admission Admit Date/Time: 11/20/21 09:54 Attending Provider: Lul Dominguez Primary Care Provider: Care Physician,No Primary Discharge Orders/Prescriptions Prescriptions: Continued ranolazine [Ranexa] 500 mg tablet extended release 12 hr 500 mg PO BID Qty: 60 3RF cholecalciferol (vitamin D3) 50 mcg (2,000 unit) tablet 50 mcg PO DAILY nitroglycerin 0.4 mg tablet, sublingual 0.4 mg sublingual Q5-15M PRN (Reason: Chest Pain) Rx Instructions: do not exceed 3 doses per episode atorvastatin 80 mg tablet 80 mg PO QHS Label Comments: take 1 tablet by mouth once daily aspirin 81 mg Tablet,Chewable 162 mg PO DAILY allopurinol 300 mg tablet 300 mg PO QHS Label Comments: take 1 tablet by mouth once daily if needed for gout lisinopril 2.5 mg tablet 2.5 mg PO DAILY Label Comments: take 1 tablet by mouth once daily coenzyme Q10 [CoQ-10] 100 mg Capsule 100 mg PO BID omega-3 fatty acids-vitamin E 1,000 mg Capsule 1.5 cap PO BID metoprolol tartrate 25 mg tablet 25 mg PO BID Label Comments: take 1 tablet by mouth twice a day fenofibrate nanocrystallized 145 mg tablet 145 mg PO DAILY Label Comments: take 1 tablet by mouth once daily thyroid (pork) [CONSTRUCTION EXECUTIVE Thyroid] 15 mg tablet 15 mg PO DAILY Label Comments: take 1 tablet by mouth once daily Brilinta 90 mg Tablet 90 mg PO BID Referrals / Follow Up: Care Physician,No Primary [Primary Care Provider] - Lul Dominguez MD [STAFF PHYSICIAN] -
--- NOTE | 2021-11-21 09:56 | PCM.DC.SUM ---
Providers Date of Admission: 11/20/21 Date of Discharge: 11/21/21 Primary Care Physician: Bisi Primary Care Phys Reason For Visit: UNSTABLE ANGINA, CAD, PRESENCE OF STENT, HTN, HLD Diagnosis Discharge Diagnosis (1) Atherosclerotic heart disease of [place] coronary artery with unstable angina pectoris: Status: Acute Code(s): I25.110 - Atherosclerotic heart disease of [place] coronary artery with unstable angina pectoris (2) Presence of stent in coronary artery: Status: Acute Code(s): Z95.5 - Presence of coronary angioplasty implant and graft (3) Mixed hyperlipidemia: Status: Acute Code(s): E78.2 - Mixed hyperlipidemia (4) Essential hypertension: Status: Acute Code(s): I10 - Essential (primary) hypertension Medications at Discharge Home Medications allopurinol 300 mg tablet 300 mg PO QHS 11/08/21 aspirin 81 mg chewable tablet 162 mg PO DAILY 11/08/21 atorvastatin 80 mg tablet 80 mg PO QHS 11/08/21 coenzyme Q10 100 mg capsule (CoQ-10) 100 mg PO BID 11/08/21 fenofibrate nanocrystallized 145 mg tablet 145 mg PO DAILY 11/08/21 lisinopril 2.5 mg tablet 2.5 mg PO DAILY 11/08/21 metoprolol tartrate 25 mg tablet 25 mg PO BID 11/08/21 omega-3 fatty acids-vitamin E 1,000 mg capsule 1.5 cap PO BID 11/08/21 thyroid (pork) 15 mg tablet (GENERAL REPAIRER Thyroid) 15 mg PO DAILY 11/08/21 ticagrelor 90 mg tablet (Brilinta) 90 mg PO BID 11/08/21 cholecalciferol (vitamin D3) 50 mcg (2,000 unit) tablet 50 mcg PO DAILY 11/11/21 nitroglycerin 0.4 mg sublingual tablet 0.4 mg sublingual Q5-15M PRN Chest Pain 11/11/21 ranolazine 500 mg tablet,extended release,12 hr (Ranexa) 500 mg PO BID #60 tabs 11/14/21 Hospital Course Operations None Procedures Cardiac catheterization and - (Cardiac Intervention) Summary of Care Provided Minutes Spent on Discharge: 45 Hospital Course: The patient presented to for outpatient diagnostic cardiac catheterization. The patient was noted to have RCA in-stent restenosis. He subsequently underwent repeat RCA PTCA/MARLO. The patient was monitored overnight. He appeared to remain symptomatically and hemodynamically stable. On this day he was felt stable for release home for continued outpatient cardiovascular follow-up and cardiac rehabilitation. Physical Exam Const alert, oriented x3 and no apparent distress General Appearance: cooperative, comfortable, well kempt and well developed Orientation / Consciousness: awake, oriented to person, oriented to place and oriented to time Exam Limitations: no limitations HEENT normocephalic, head/scalp atraumatic and hearing grossly normal bilaterally Head and Scalp: normal to inspection, normocephalic and atraumatic Face and Sinus: normal facial exam Nose: external nose normal General Ear: hearing grossly impaired Eyes PERRL, EOMs intact bilaterally, conjunctivae normal and no scleral icterus General Eye: normal appearance of both eyes Pupil: PERRL EOM: EOM abnormal Neck full ROM Chest inspection of chest normal Chest: symmetrical chest wall rise Resp normal respiratory effort Auscultation: clear to auscultation bilaterally Cardio regular rate, regular rhythm, S1 normal heart sound and S2 normal heart sound Palpation: normal PMI Rate: regular rate Rhythm: regular rhythm Heart Sounds: S1 normal and S2 normal GI normal to inspection, nondistended, normoactive bowel sounds Extremity Peripheral Pulses: Yes radial pulses present right (No bruits; No hematoma) 2+ Skin no rashes or lesions noted Neuro oriented x3, moves all extremities, no focal motor deficits and no sensory deficits noted Psych mental status grossly normal Weight / BMI Weight Weight: 236 lb Body Mass Index (BMI) 34.8 ABG / Lab / Microbiology Data Result Diagrams: 11/21/21 05:40 11/21/21 05:40 Laboratory: Laboratory Results - last 24 hr 11/21/21 05:40: WBC 7.8, RBC 4.44 L, Hgb 12.8 L, Hct 39.0 L, MCV 87.8, MCH 28.8, MCHC 32.8, RDW Std Deviation 48.2 H, RDW Coeff of [place] 14.9 H, Plt Count 241, MPV 10.7, Immature Gran % (Auto) 0.400, Neut % (Auto) 60.9, Lymph % (Auto) 26.4, [place] % (Auto) 7.7, Eos % (Auto) 4.1, Baso % (Auto) 0.5, Absolute Neuts (auto) 4.7, Absolute Lymphs (auto) 2.06, Nucleated RBC % 0 11/21/21 05:40: Sodium 136, Potassium 4.1, Chloride 108 H, Carbon Dioxide 22.0, Anion Gap 6, BUN 18, Creatinine 1.36 H, Estim Creat Clear Calc 65.70, Est GFR (MDRD) Af Amer 72, Est GFR (MDRD) Non-Af 59 L, BUN/Creatinine Ratio 13.2, Glucose 101, Calcium 8.7, Total Bilirubin 0.50, AST 18, ALT 21, Alkaline Phosphatase 37 L, Total Protein 6.9, Albumin 3.4, Globulin 3.5, Albumin/Globulin Ratio 1.0 D/C Instructions Discharge Diet: Low fat / Low cholesterol May resume sexual activity in: 1-2 weeks Weight Bearing Status: - (avoid heavy exertional activity x 2 weeks) Call your doctor if your incision/area has: Continuous Slow Oozing, Sudden Increased Bleeding, Increased Pain/ Swelling, Increased Redness, Foul Smelling Discharge and Swelling at the incision site Call your doctor if you observe: Fever of 101 or Higher, Shortness of breath, Fainting spells, Swelling in the ankles, Chest pain, Increased palpitations (irregular heartbeat) and Uncontrolled pain Cleanse incision/area with: Soap & Water Please Follow Up With: Lul Dominguez MD When: [facility] to arrange follow up appt. Meaningful Use Info Meaningful Use Diagnoses (Choose all that apply): None applicable Discharge Plan Admission Admit Date/Time: 11/20/21 09:54 Attending Provider: Lul Dominguez Primary Care Provider: Care Physician,No Primary Discharge Orders/Prescriptions Prescriptions: Continued ranolazine [Ranexa] 500 mg tablet extended release 12 hr 500 mg PO BID Qty: 60 3RF cholecalciferol (vitamin D3) 50 mcg (2,000 unit) tablet 50 mcg PO DAILY nitroglycerin 0.4 mg tablet, sublingual 0.4 mg sublingual Q5-15M PRN (Reason: Chest Pain) Rx Instructions: do not exceed 3 doses per episode atorvastatin 80 mg tablet 80 mg PO QHS Label Comments: take 1 tablet by mouth once daily aspirin 81 mg Tablet,Chewable 162 mg PO DAILY allopurinol 300 mg tablet 300 mg PO QHS Label Comments: take 1 tablet by mouth once daily if needed for gout lisinopril 2.5 mg tablet 2.5 mg PO DAILY Label Comments: take 1 tablet by mouth once daily coenzyme Q10 [CoQ-10] 100 mg Capsule 100 mg PO BID omega-3 fatty acids-vitamin E 1,000 mg Capsule 1.5 cap PO BID metoprolol tartrate 25 mg tablet 25 mg PO BID Label Comments: take 1 tablet by mouth twice a day fenofibrate nanocrystallized 145 mg tablet 145 mg PO DAILY Label Comments: take 1 tablet by mouth once daily thyroid (pork) [GENERAL REPAIRER Thyroid] 15 mg tablet 15 mg PO DAILY Label Comments: take 1 tablet by mouth once daily Brilinta 90 mg Tablet 90 mg PO BID Referrals / Follow Up: Lul Dominguez MD [STAFF PHYSICIAN] - Care Physician,No Primary [Primary Care Provider] -
--- NOTE | 2021-11-21 10:24 | CASEMGMT ---
Pt is already on Brilinta at home and provided with co-pay card in case he has not used in past. SStatenRN CM
== END 2021-11-21 10:01 | disposition home or self-care (01) ==
LOC: CLSP 14:02 → PCU 15:26
PROVIDERS: Admitting Provider Internal Medicine Cardiovascular Disease; Visit Provider Internal Medicine Cardiovascular Disease
DX: I25.110 Atherosclerotic heart disease of native coronary artery with unstable angina pectoris (principal); E78.2 Mixed hyperlipidemia; N52.9 Male erectile dysfunction, unspecified; I12.9 Hypertensive chronic kidney disease with stage 1 through stage 4 chronic kidney disease, or unspecified chronic kidney disease; M79.10 Myalgia, unspecified site; Z79.02 Long term (current) use of antithrombotics/antiplatelets; Z87.891 Personal history of nicotine dependence; Z79.899 Other long term (current) drug therapy; Z79.82 Long term (current) use of aspirin; N18.9 Chronic kidney disease, unspecified; G47.33 Obstructive sleep apnea (adult) (pediatric); I25.2 Old myocardial infarction; E03.9 Hypothyroidism, unspecified; I45.10 Unspecified right bundle-branch block; Z95.5 Presence of coronary angioplasty implant and graft
CPT/HCPCS: 36415; 80053; 85025; 92928; 93005; 93454; 96360; 96361; 99152; 99153; 99218; C1874; J7030; Q9967; C1725; C1769; C1887; C1894; C9600; G0378; J2405

== ENCOUNTER → 2022-07-20 | Outpatient (CLI) | payer SELFPAY ==
[2022-07-20 08:03] LABS: Basophil# 0.05 X10^3/uL; Basophil% 0.6 % (0-1); Eosinophil# 0.43 X10^3/uL; Eosinophils% 4.9 % (0-5); Hemoglobin 14.3 g/dL (13.0-16.5); Lymphocyte % 28.7 % (19-41); Mean Corp Hgb Conc 32.5 g/dL (32-36); Mean Corpuscular Hgb 29.4 pg (27.0-32.0); Mean Corpuscular Volume 90.3 fL (80-94); Mean Platelet Vol. 10.4 fl (6.2-12.0); Monocyte# 0.69 X10^3/uL; Monocyte% 7.9 % (0-10); NRBC Flagged by Analyzer 0.3 % (0-5); Neutrophil # 4.99 X10^3/uL (2.7-7.7); Neutrophil % 57.3 % (47-70); Platelet Count 296 K/mm3 (150-450); RBC Distribution Width SD 46.5 fl (35.1-43.9); Red Blood Count 4.87 M/mm3 (4.6-6.2); White Blood Count 8.7 K/mm3 (4.4-11.0)
[2022-07-20 08:48] LABS: AST(SGOT) 23 U/L (15-37); Alanine Aminotransfer ALT/SGPT 36 U/L (16-61); Albumin, Serum 3.9 g/dL (3.2-5.0); Alkaline Phosphatase 44 U/L (45-117); Anion Gap 4 (5-15); BUN 22 mg/dL (7-18); BUN/Creat Ratio 13.2 RATIO (10-20); Bilirubin, Direct 0.14 mg/dL (0.00-0.30); Calcium,Total 9.1 mg/dL (8.5-10.1); Chloride 109 mmol/L (98-107); Cholesterol 209 mg/dL (200); Creatinine, Serum 1.67 mg/dL (0.70-1.30); EST Glomerular Filtration Rate 47 mL/min (>60); Est Glom Filt Rate - Afr Amer 56 mL/min (>60); Free T3 2.2 pg/mL (2.18-3.98); Globulin 3.9 g/dL (2.2-4.2); Glucose 115 mg/dL (74-106); High Density Lipoprotein 35 mg/dL; Potassium 4.5 mmol/L (3.5-5.1); Protein, Total 7.8 g/dL (6.4-8.2); Sodium Level 140 mmol/L (136-145); T4 Free Direct 0.98 ng/dL (0.76-1.46); Thyroid Stim Hormone (TSH) 3.18 uIU/mL (0.358-3.74); Triglycerides 222 mg/dL; Very Low Density Lipoprotein 44 mg/dL (5-40)
== END | disposition home or self-care (01) ==
LOC: LAB 07:45
PROVIDERS: Referring Provider Nurse Practitioner Gerontology; Visit Provider Nurse Practitioner Gerontology
DX: I10 Essential (primary) hypertension (principal); I25.110 Atherosclerotic heart disease of native coronary artery with unstable angina pectoris; E03.9 Hypothyroidism, unspecified; E78.2 Mixed hyperlipidemia
CPT/HCPCS: 36415; 80048; 80061; 80076; 84439; 84443; 84481; 85025

== ENCOUNTER → 2024-09-13 | Outpatient (CLI) | payer MEDICAID, SELFPAY ==
[2024-09-13 10:41] LABS: Absolute Lymphocyte Count 2.63 X10^3/uL (0.83-4.51); Basophil# 0.07 X10^3/uL; Basophil% 0.6 % (0-1); Eosinophil# 0.38 X10^3/uL; Eosinophils% 3.5 % (0-5); Hematocrit 44.5 % (40-54); Hemoglobin 15.8 g/dL (13.0-16.5); Lymphocyte # 2.63 X10^3/ul (0.83-4.51); Lymphocyte % 24.2 % (19-41); Mean Corp Hgb Conc 35.5 g/dL (32-36); Mean Corpuscular Hgb 30.2 pg (27.0-32.0); Mean Corpuscular Volume 85.1 fL (80-94); Monocyte# 0.69 X10^3/uL; Monocyte% 6.4 % (0-10); NRBC Flagged by Analyzer 0 % (0-5); Neutrophil # 7.04 X10^3/uL (2.7-7.7); Neutrophil % 64.8 % (47-70); Platelet Count 371 K/mm3 (150-450); RBC Distribution Width CV 14.4 % (11.6-14.6); RBC Distribution Width SD 44.1 fl (35.1-43.9); Red Blood Count 5.23 M/mm3 (4.6-6.2); White Blood Count 10.9 K/mm3 (4.4-11.0)
[2024-09-13 11:40] LABS: Hemoglobin A1c 6.2 % (<=5.6)
[2024-09-13 12:01] LABS: Cholesterol 255 mg/dL (<=200); High Density Lipoprotein 32 mg/dL; Low Density Lipoprotein Calc. 168 mg/dL; Pro- Brain NATRIURETIC PEPTIDE 65 pg/mL (<=900); Triglycerides 272 mg/dL; Very Low Density Lipoprotein 54 mg/dL (5-40); cholesterol:hdl ratio screen 7.87
[2024-09-13 12:22] LABS: AST(SGOT) 27 U/L (<=37); Alanine Aminotransfer ALT/SGPT 22 U/L (<=46); Albumin, Serum 4.4 g/dL (3.5-5.0); Alkaline Phosphatase 54 U/L (40-129); Anion Gap 12 (5-15); BUN 22 mg/dL (4-19); BUN/Creat Ratio 12.9 RATIO (10-20); Bilirubin, Direct 0.14 mg/dL (0.00-0.30); Calcium,Total 9.6 mg/dL (7.6-11.0); Carbon Dioxide 20.1 mmol/L (21.0-32.0); Chloride 108 mmol/L (98-108); Creatinine, Serum 1.67 mg/dL (0.70-1.20); EST Glomerular Filtration Rate 49 (>60); Globulin 3.3 g/dL (2.2-4.2); Glucose 94 mg/dL (70-99); Potassium 4.5 mmol/L (3.3-5.1); Protein, Total 7.7 g/dL (5.9-8.4); Sodium Level 140 mmol/L (133-145); Total Bilirubin 0.34 mg/dL (0.00-1.30)
== END | disposition home or self-care (01) ==
LOC: LAB 10:15
PROVIDERS: Referring Provider Nurse Practitioner Family; Visit Provider Nurse Practitioner Family
DX: I12.9 Hypertensive chronic kidney disease with stage 1 through stage 4 chronic kidney disease, or unspecified chronic kidney disease (principal); I25.110 Atherosclerotic heart disease of native coronary artery with unstable angina pectoris; N18.9 Chronic kidney disease, unspecified; Z95.5 Presence of coronary angioplasty implant and graft; E78.5 Hyperlipidemia, unspecified; E03.9 Hypothyroidism, unspecified; R06.09 Other forms of dyspnea
CPT/HCPCS: 36415; 80048; 80061; 80076; 83036; 83880; 84443; 85025

== ENCOUNTER → 2024-10-10 | Outpatient (CLI) | payer MEDICAID, SELFPAY ==
--- NOTE | 2024-10-11 15:40 | STRESSREP ---
Stress Test Report Date: 10/10/2024 Procedure: Pharmacologic stress nuclear imaging study Indications: Chest pain Consent: Per the patient Procedure: The patient underwent pharmacologic (Regadenoson 0.4mg ) evaluation with a peak heart rate of 121 beats per minute (72%predicted maximal heart rate) and a peak blood pressure of 148/80 mmHg. The baseline ECG demonstrated sinus rhythm. The peak pharmacologic ECG demonstrated no ischemic changes. There were no cardiac dysrhythmias pretest, during pharmacologic infusion, or recovery. There was no complaint of chest discomfort during pharmacologic infusion or recovery. The patient was injected with 14.3 millicuries of technetium 99m Cardiolite and subsequently rest SPECT Cardiolite nuclear imaging was obtained in the horizontal long, vertical long, and short axis views. The patient underwent pharmacologic (Regadenoson) evaluation. The patient was injected with 44.8 millicuries of technetium 99m Cardiolite and subsequently stress SPECT Cardiolite nuclear imaging was obtained in the horizontal long, vertical long, and short axis views. A gated Cardiolite study at peak stress was obtained. The examination was stopped secondary to completion of protocol. Rest and stress SPECT Cardiolite nuclear imaging status post realignment, normalization, and attenuation correction demonstrate no fixed or reversible perfusion defects. There is end systolic thickening and brightening. The gated Cardiolite study demonstrates myocardial thickening and inward wall motion. The reported LVEF is 68%. Impression: 1. Pharmacologic (Regadenoson) evaluation 2. Peak pharmacologic ECG with no ischemic changes. 3. There were no cardiac dysrhythmias pretest, during pharmacologic infusion, or recovery. 5. Rest and stress SPECT Cardiolite nuclear imaging demonstrate relative uniform tracer uptake and myocardial perfusion appearing within normal limits. 6. The gated Cardiolite study reports an LVEF of 68%. This note was generated with [employer] software. It may contain incorrect words, spelling, and punctuation that were not noted in checking the note before signing.
== END | disposition home or self-care (01) ==
LOC: CVS 06:16
PROVIDERS: Referring Provider Nurse Practitioner Family; Visit Provider Nurse Practitioner Family
DX: R07.9 Chest pain, unspecified (principal); R06.09 Other forms of dyspnea; Z95.5 Presence of coronary angioplasty implant and graft; I10 Essential (primary) hypertension
CPT/HCPCS: 78452; 93017; A9500; A4216; J2785